=== PATIENT | female | born 1980 ===

== ENCOUNTER 2016-09-21 14:55 | Outpatient (CLI) | payer OTHER | END 2016-09-21 14:56 | disposition home or self-care (01) | DX: D25.9 Leiomyoma of uterus, unspecified (principal) ==

== ENCOUNTER 2018-06-01 09:16 | Outpatient (CLI) | payer OTHER | END 2018-06-01 09:17 | disposition home or self-care (01) | LOC: RT 09:16 | PROVIDERS: ATTEND Family Medicine | DX: R05 Cough (principal) | CPT/HCPCS: 94010 ==